=== PATIENT | male | born 1960 | race Caucasian/White ===

== ENCOUNTER 2017-07-13 05:54 | Inpatient (IN) | payer BC ==
[2017-06-17 14:19] VITALS: BMI 46.0
--- NOTE | 2017-06-17 15:04 | PAT Medication Instructions ---
Service Date Jun 17, 2017. Current Home Medication List Naproxen (Aleve), 2 TABS PO DAILY PRN for Pain Medication Instructions For Your Scheduled Surgery - Hold the following medications as instructed by your surgeon: Naproxen (Aleve), 2 TABS PO DAILY PRN for Pain -Take the morning of your surgery with a small sip of water: Tylenol (if needed up to 4 hours prior to surgery) If you have any questions please call us at [phone] or [phone] or [phone]
[2017-06-17 16:00] LABS: BASO % 0.4 %; BASO ABS # 0.02 K/uL (0-0.2); COMPLETE YES; EOS % 1.6 %; HEMATOCRIT 42.4 % (42-52); IG% 0.4 %; LYMPH % 29.1 %; LYMPH ABS # 1.59 K/uL (1.2-3.4); MEAN CORPUSCULAR HEMOGLOBIN 33.9 pg (25-34); MEAN CORPUSCULAR HGB CONC 36.1 g/dl (32-36); MEAN PLATELET VOLUME 11.3 fL (7.4-10.4); MONO % 9.3 %; NEUT % 59.2 %; PLATELET COUNT 145 K/uL (130-400); RED BLOOD COUNT 4.51 M/uL (4.7-6.1); WHITE BLOOD COUNT 5.47 K/uL (4.8-10.8)
[2017-06-17 16:02] LABS: URINE APPEARANCE CLEAR (CLEAR); URINE BILIRUBIN NEG (NEG); URINE COLOR YELLOW; URINE EPITHELIAL CELL AUTO 0-5 /lpf (0-5); URINE NITRITE NEG (NEG); URINE SPECIFIC GRAVITY 1.027 (1.000-1.030); UROBILINOGEN NEG (NEG); ZZUR CULT IF INDIC CLEAN CATCH NO
[2017-06-17 16:03] LABS: MANUAL MICROSCOPIC REQUIRED? NO; REVIEW REQ? NO
--- NOTE | 2017-06-17 16:05 | DIAGNOSTIC IMAGING REPORT ---
CHEST 2 VIEWS ROUTINE CLINICAL HISTORY: 56 years-old Male presenting with preadmission chest x-ray. TECHNIQUE: PA and lateral views of the chest were obtained. COMPARISON: None. FINDINGS: Cardiomediastinal silhouette normal. Lungs and pleural spaces clear. Degenerative changes of the spine. Upper abdomen normal. IMPRESSION: 1. No acute cardiopulmonary disease. Electronically signed by: Goyo Lynch M.D. 06/17/2017 4:04 PM Dictated Date/Time: 06/17/2017 4:03 PM
--- NOTE | 2017-06-17 16:06 | History and Physical ---
History & Physical Date Jun 17, 2017. Chief Complaint Bilateral Knee Pain History of Present Illness Mr Mahan is a 56 year old male who is here for a pre-op prior to bilateral total knee replacements. He presents with pain on the right and left side equally. Patient is here today for pre-op visit, scheduled for bilateral knee TKA at [facility] on 07/13/2017. The symptoms occur constantly with intermittent worsening. The problem is unchanged. Currently the patient states that the symptoms are moderate-severe. The pain is described as aching, discomforting and throbbing. The symptoms occur continuously. He rates his current pain as 9/ 10. The symptoms are aggravated by ascending stairs, daily activities, descending stairs, first steps while awake, kneeling, movement, repetitive activities, sleeping in any position, squatting and walking. Angelo states that the symptoms are relieved by no specific activity. In addition to knee pain equally on both sides the patient is also experiencing decreased mobility, difficulty bending, difficulty going to sleep, limping, nighttime awakening, pain, stiffness, tenderness and weakness. Pertinent negatives include chills and fever. The patient has had a previous x-ray and MRI. Prior NSAIDs include Advil. He has been treated with a corticosteroid injection on the right and left side equally. Patient has been treated with bilateral visco supplementation. Patient reports no relief with previous injections. Patient has tried previous knee bracing to bilateral knees. Patient has had previous therapy. He attended physical therapy. Patient has had arthroscopic surgery. Patient has had bilateral knee arthroscopies performed by Dr. Morales about 20 years ago. Past Medical/Surgical History GERD Obesity history of shoulder sx 2011 nasal surgery 2010 bilateral knee scopes 1996 umbilical hernia 1995 Additional History Hepatic Disease: No Endocrine Disorder: No Kidney Disease: No Hypertension: No Heart Disease: No Allergies Coded Allergies: No Known Allergies (Unverified , 06/17/17) Home Medications Scheduled PRN Naproxen (Aleve), 2 TABS PO DAILY PRN for Pain Physical Examination Skin: warm/dry, no rash Eyes: normal inspection, EOMI, sclerae normal Head: normocephalic, atraumatic Respiratory/Chest: lungs clear, normal breath sounds, no respiratory distress Cardiovascular: regular rate, rhythm, no edema, no murmur Abdomen / GI: normal bowel sounds, non tender Addiitonal Comments: Bilateral Knee Exam Hip ROM L * Active ROM - Flexion: 135 degrees, Abduction: 45 degrees, Adduction : 20 degrees, Internal: 35 degrees, External: 45 degrees, Extension: 0 degrees. Hip ROM R * Active ROM - Flexion: 135 degrees, Abduction: 45 degrees, Adduction : 20 degrees, Internal: 35 degrees, External: 45 degrees, Extension: 0 degrees. Knee ROM L * Active ROM - Flexion: 100 degrees, Extension: 5 degrees, Factors: pain, Description: Active painful ROM. Knee ROM R * Active ROM - Flexion: 100 degrees, Extension: 5 degrees, Factors: pain, Description: Active painful ROM. Strength LE Normal Strength Description - Normal lower extremity: Bilateral. Lumbar * Gait: Gait is antalgic on the left but not broad-based. The patient is able to [id number]-walk normally.. Muscle tone lower extremity: Lower extremity muscle tone is normal.. Muscle tone paraspinal: Paraspinous muscle tone is normal.. Spasm: Absent. Tenderness: There is no mid-line spinous or paraspinous tenderness. The sciatic notch is tender on the right but non- tender on the left.. Motion/stability: Motion is without pain, crepitus, or evident instability.. Buttock - Right: Painless. Left: Painless. Greater trochanter - Right: Painless. Left: Painless. Sacroiliac joint: Right: Painless. Left: Painless. Femoral stretch - Right: no back or leg pain, Left: no back or leg pain. Straight leg raise - Right: no back or leg pain, Left: Seated SLR on the right reproduces leg pain below the knee less than 90.. Lumbar Normal Skin/scars: Normal. Arnie's (Hernan) - Right: Negative. Left: Negative. Lumbar Spine ROM * Active ROM - Lat flex L: 35 degrees. Lat flex R: 35 degrees. Rotation L: 90 degrees. Rotation R: 90 degrees. Extension: 35 degrees. Flexion: 80 degrees. Factors: none, Description: pain free active ROM. Knee * Inspection - Gait: Limp. Alignment - Right: varus, Left: varus. Ecchymosis - Right: negative, Left: negative. Effusion - Right: mild, Left: mild. Swelling - Right: mild, Left: mild. Maximum tenderness - Right: Medial Joint Line, Left: Medial Joint Line. Patella exam - Crepitation - Right: mild, Left: mild. Patella position - Right: neutral, Left: neutral. Knee Normal Inspection - Atrophy - Right: Absent, Left: Absent. Skin - Right: Normal, Left: Normal. Patella exam - Apprehension - Right: Negative, Left: Negative. Q-angle - Right: Normal, Left: Normal. Posterior drawer - Right: Negative, Left: Negative. Anterior drawer - Right: Negative, Left: Negative. Valgus stress - Right: Negative, Left: Negative. Varus stress - Right: Negative , Left: Negative. Extensor lag - Right: Normal, Left: Normal. Neurovascular LE Normal Neurovascular examination including reflexes, sensation , and pulses is within normal limits. Bilateral Knee X-rays: Xrays reviewed of Bilateral knees showing findings consistent with degenerative joint disease including joint space narrowing, subchondral sclerosis and peripheral osteophyte formation. no acute bony pathology, overall varus alignment. Impression: degenerative joint disease of Bilateral knees with no acute bony pathology noted. Diagnosis Bilateral Knee Osteoarthritis Further care discussed with patient and at this point in time has failed conservative measures and would like to proceed with bilateral total knee replacement. Plan on discharge will be home with home health physical therapy. DVT prophalaxis with KEVIN Webers and will also place on aspirin 81 mg p.o. b.i.d. for a month postop. Patient will have follow up appointment in our office two weeks post op for staple/suture removal and re-evaluation. Patient otherwise has no other questions or concerns.
[2017-06-17 16:08] LABS: BUN/CREATININE RATIO 18.8 (10-20); CALCIUM 8.9 mg/dl (8.5-10.1); CREATININE 0.96 mg/dl (0.60-1.40); POTASSIUM 4.3 mmol/L (3.5-5.1)
[2017-06-18 08:08] LABS: ESTIMATED AVERAGE GLUCOSE 111 mg/dl; HA1C FLAG Normal (Normal)
[2017-07-13] VITALS (9 sets, daily range): BP systolic 138–188; BP diastolic 72–93; PULSE 58–85; TEMP 36.5–36.9; O2SAT 95–98; Ht 167.6 cm; Wt 129.5 kg
[~2017-07-13] VITALS: Ht 167.6 cm; Wt 129.5 kg
[~2017-07-13 05:54] MED LIST: NAPR1TAB9 PO
[2017-07-13] MEDS ORDERED: CeleBREX 200 MG CAP PO SCH (06:00)
[2017-07-13] MEDS ORDERED: ROPIVACAINE 5MG/ML 30 ML 150 MG, BUPIVACAINE/EPINEPHR 0.5% MPF 30 ML, KETOROLAC TROMETH... INFIL SCH ×7 (06:00)
[2017-07-13] MEDS ORDERED: DEXAMETHASONE 4 MG TAB PO SCH (06:00)
[2017-07-13] MEDS ORDERED: LACTATED RINGER'S 1000ML 500 ML IV ONE (06:00)
[2017-07-13] MEDS ORDERED: LACTATED RINGER'S 1000ML IV SCH (06:00)
[2017-07-13] MEDS ORDERED: FAMOTIDINE 20 MG TAB PO SCH (06:00)
[2017-07-13] MEDS ORDERED: CEFAZOLIN 3000 MG/65 ML D5W 65 ML IV SCH (06:00)
[2017-07-13] MEDS ORDERED: METOCLOPRAMIDE HCL 10 MG TAB PO SCH (06:00)
[2017-07-13] MEDS ORDERED: GABAPENTIN 300 MG CAP PO SCH (06:00)
[2017-07-13] MEDS ORDERED: LACTATED RINGER'S 1000ML 1,000 ML IV SCH (06:00)
[2017-07-13] MEDS ORDERED: ACETAMINOPHEN 500 MG TAB PO SCH (06:00)
[2017-07-13] MEDS ORDERED: BUPIVACAINE 0.5 % 5 MG/1 ML PF 10ML VIAL ONE (06:29)
[2017-07-13] MEDS: TRANEXAMIC ACID INJ 1,000 MG in SODIUM CHLORIDE 0.9% 100ML 100 ML IV SCH ×2 (06:30→07:32)
[2017-07-13] MEDS ORDERED: BUPIVACAINE 0.25% 30 ML VIAL ONE (06:30)
[2017-07-13] MEDS ORDERED: BACITRACIN 50000 UNIT VIAL ONE ×2 (06:59→07:00)
[2017-07-13] MEDS ORDERED: ORTHO JOINT ANESTHETIC ONE (06:59)
[2017-07-13] MEDS ORDERED: POVIDONE-IODINE OP SOLN 30 ML BTL ONE ×2 (06:59→07:00)
--- NOTE | 2017-07-13 07:02 | History & Physical Bridge Note ---
H&P Re-Evaluation Bridge Note: I have examined the patient, reviewed the History & Physical and in the interval since the performance of the History & Physical I have noted the following changes of clinical significance: No changes noted
[2017-07-13] MEDS ORDERED: MIDAZOLAM HCL 1 MG/ML 2ML VIAL ONE (07:09)
[2017-07-13] MEDS ORDERED: PROPOFOL IV EMULSION 10 MG/ML 20 ML VIAL IV ONE ×2 (09:00→10:15)
[2017-07-13] MEDS ORDERED: EpHEDrine SULFATE 50MG/5ML SYR ONE (09:00)
[2017-07-13] MEDS ORDERED: LABETALOL HCL IV 5 MG/ML 20ML IV PRN (09:45)
[2017-07-13] MEDS ORDERED: FENTANYL CITRATE INJ 50 MCG/1 ML 2 ML VIAL IV PRN (09:45)
[2017-07-13] MEDS ORDERED: MEPERIDINE HCL 25 MG/ML CARP IV PRN (09:45)
[2017-07-13] MEDS ORDERED: EpHEDrine SULFATE INJ 50 MG/ML AMP IV PRN (09:45)
[2017-07-13] MEDS ORDERED: ATROPINE SULFATE 0.1 MG/ML 5ML SYR IV PRN (09:45)
[2017-07-13] MEDS ORDERED: ONDANSETRON INJ 2 MG/ML 2 ML VIAL IV PRN ×2 (09:45→11:30)
[2017-07-13] MEDS ORDERED: HYDROmorphone INJ 1 MG/ML SYR IV PRN (09:45)
--- NOTE | 2017-07-13 10:30 | [facility] Operative Report ---
Operative Report Operative Date Jul 13, 2017. Pre-Operative Diagnosis Bilateral knee osteoarthritis Post-Operative Diagnosis Bilateral knee osteoarthritis Procedure(s) Performed Bilateral Total Knee Arthroplasty utilizing [employer] journey 2 patient matched total knee arthroplasty right size 5 femur 5 tibia 12 Patty 35 oval patella left size 5 femur 4 tibia 11 poly-[address] Butch Morales Research Biologist Surgeon(s) Shaun Vigil Estimated Blood Loss mL Findings Severe end-stage tricompartmental degenerative joint disease Nourse wants to conservative management including physical therapy anti-inflammatories relative rest activity modification injections patient presents for total knee arthroplasty Specimens Permanent specimens A: Right knee bone and tissue B: Left knee bone and tissue Complication(s) None Disposition Recovery Room / PACU Indications Severe end-stage Tri-Chlor metal degenerative joint disease with varus alignment large muscle conservative management patient presents for total knee arthroplasty bilaterally Description of Procedure After proper prepping and draping of the bilateral lower extremities, an anterior midline incision was made over the region of the extensor extensor mechanism of the left knee. After meticulous hemostasis was obtained and maintained in subcutaneous tissues a medial parapatellar incision was made The patella was subluxed lateralward the medial lateral gutter were cleaned from any hypertrophic synovitis and scar tissue of the distal femoral block was placed and the distal femoral osteotomy cut was made subsequently the chamfers anterior and posterior osteotomy cuts were made utilizing the 4-in-1 block the tibia was subsequently subluxed anteriorward medial and ateral meniscal remnants were excised in their entirety remnants of the anterior and posterior cruciate ligaments were excised in their entirety excellent exposure of the proximal tibia was obtained the tibial osteotomy guide was placed on the proximal tibial osteotomy cut was made once again the knee was irrigated with copious amounts of sterile saline solution the patella was subsequently everted lateralward thickened scar tissue around the patella was removed the patella was subsequently cut utilizing a freehand technique and was drilled prepared for final preparation and placement of patella socially flexion-extension gaps were checked and the equal and symmetric trials were placed to the appropriate femoral and tibial trials with poly-spacer being placed for equal flexion and extension gaps and full range of motion including extension to 0 and flexion to 140 the trial components after having been taken to recovery range of motion was subsequently removed meticulous hemostasis was obtained and maintained subsequently a knee block injection of joint cocktail including ropivacaine 0.5 % 150 mg. Bupivacaine 0.5% epinephrine 1-200,030 mL's toradol 30 mg dexamethasone 4 mg ketamine 10 mg clonidine 100 micrograms normal saline solution 30 mg was infiltrated into the soft tissues of the posterior knee medial lateral gutters and periosteal synovium special attention was paid to protect neurovascular structures at all times subsequently trial components having been removed the knee was irrigated with sterile saline solution. debris was removed the proximal tibia was subsequently prepared and was made ready for the placement of the tibial component tibial component was also cemented and tamped into position the femoral component was subsequently placed and cemented in the position the patellar component was subsequently cemented in position because hemostasis once again obtained and maintained wound having been thoroughly irrigated with debridement and debridement lavage was performed as well as a medial parapatellar incision closed with #1 Vicryl in interrupted fashion subcutaneous was closed with #2 Vicryl skin was closed with skin clips Next, an anterior midline incision was made over the region of the extensor extensor mechanism of the right knee. After meticulous hemostasis was obtained and maintained in subcutaneous tissues a medial parapatellar incision was made The patella was subluxed lateralward the medial lateral gutter were cleaned from any hypertrophic synovitis and scar tissue of the distal femoral block was placed and the distal femoral osteotomy cut was made subsequently the chamfers anterior and posterior osteotomy cuts were made utilizing the 4-in-1 block the tibia was subsequently subluxed anteriorward medial and ateral meniscal remnants were excised in their entirety remnants of the anterior and posterior cruciate ligaments were excised in their entirety excellent exposure of the proximal tibia was obtained the tibial osteotomy guide was placed on the proximal tibial osteotomy cut was made once again the knee was irrigated with copious amounts of sterile saline solution the patella was subsequently everted lateralward thickened scar tissue around the patella was removed the patella was subsequently cut utilizing a freehand technique and was drilled prepared for final preparation and placement of patella socially flexion-extension gaps were checked and the equal and symmetric trials were placed to the appropriate femoral and tibial trials with poly-spacer being placed for equal flexion and extension gaps and full range of motion including extension to 0 and flexion to 140 the trial components after having been taken to recovery range of motion was subsequently removed meticulous hemostasis was obtained and maintained subsequently a knee block injection of joint cocktail including ropivacaine 0.5 % 150 mg. Bupivacaine 0.5% epinephrine 1-200,030 mL's toradol 30 mg dexamethasone 4 mg ketamine 10 mg clonidine 100 micrograms normal saline solution 30 mg was infiltrated into the soft tissues of the posterior knee medial lateral gutters and periosteal synovium special attention was paid to protect neurovascular structures at all times subsequently trial components having been removed the knee was irrigated with sterile saline solution. debris was removed the proximal tibia was subsequently prepared and was made ready for the placement of the tibial component tibial component was also cemented and tamped into position the femoral component was subsequently placed and cemented in the position the patellar component was subsequently cemented in position because hemostasis once again obtained and maintained wound having been thoroughly irrigated with debridement and debridement lavage was performed as well as a medial parapatellar incision closed with #1 Vicryl in interrupted fashion subcutaneous was closed with #2 Vicryl skin was closed with skin clips.. PA-C was necessary for prepping and drapping as well as wound closure of deep fascia Sub cutaneous tissue and skin and was necessary for the case. A sterile compressive dressings were placed, patient was taken to recovery in stable condition of report dictated by Andrew I attest to the content of the Intraoperative Record and any orders documented therein. Any exceptions are noted below. I attest to the content of the Intraoperative Record and any orders documented therein. Any exceptions are noted below.
[2017-07-13] MEDS ORDERED: MoRPHine SULFATE 2 MG/ML CARP IV PRN (11:30)
[2017-07-13] MEDS ORDERED: ALUMINUM/MAGNESIUM/SIMETH (MAALOX MAX) 30 ML UDC PO PRN (11:30)
[2017-07-13] MEDS ORDERED: BISACODYL 10 MG SUPP PR PRN (11:30)
[2017-07-13] MEDS ORDERED: MAGNESIUM HYDROXIDE SUSP 30 ML UDC PO PRN (11:30)
[2017-07-13] MEDS ORDERED: TAMSULOSIN HCL 0.4 MG CAP PO PRN (11:30)
--- NOTE | 2017-07-13 12:14 | Anesthesiology Progress Note ---
Anesthesia Post Op Note Date & Time Jul 13, 2017 at 12:14 Vital Signs Pain Intensity: 0 Vital Signs Past 12 Hours Date Time Temp Pulse Resp B/P (MAP) Pulse Ox O2 Delivery O2 Flow Rate FiO2 07/13/17 12:00 65 20 134/81 98 Nasal Cannula 2 07/13/17 11:45 36.6 71 20 139/75 98 Nasal Cannula 2 07/13/17 11:35 72 20 137/88 98 Oxymask 5 07/13/17 11:25 68 16 124/80 98 Oxymask 10 07/13/17 11:15 36.4 74 16 144/90 98 Oxymask 10 07/13/17 06:53 36.8 58 20 188/93 97 Room Air Notes Mental Status: alert / awake / arousable, participated in evaluation Pt Amnestic to Procedure: Yes Nausea / Vomiting: adequately controlled Pain: adequately controlled Airway Patency, RR, SpO2: stable & adequate BP & HR: stable & adequate Hydration State: stable & adequate Neuraxial Anesthesia: was administered, sensory block is resolving Anesthetic Complications: no major complications apparent
[2017-07-13] MEDS ORDERED: MoRPHine SULFATE 10 MG/ML CARP/VIAL IV PRN (14:00)
[2017-07-13] MEDS: D5W AND 1/2NSS + 20MEQ KCL 1,000 ML IV SCH ×2 (14:08→23:17)
[2017-07-13] MEDS: OXYCODONE HCL IR 5 MG TAB (IMMEDIATE RELEASE) PO PRN ×4 (14:13→23:19)
[2017-07-13] MEDS: KETOROLAC TROMETHAMINE 30 MG/ML VIAL IV. SCH ×3 (14:14→23:16)
--- NOTE | 2017-07-13 14:53 | DIAGNOSTIC IMAGING REPORT ---
LEFT KNEE 1 OR 2 VIEWS ROUTINE CLINICAL HISTORY: AP/LATERAL IN PACU LEFT KNEE COMPARISON: None. DISCUSSION: Total left knee prosthetic in good position. Good contact between prosthesis and underlying bone. Surgical drains are in position. Expected soft tissue postoperative change IMPRESSION: Anatomic alignment status post total left knee replacement The above report was generated using voice recognition software. It may contain grammatical, syntax or spelling errors. Electronically signed by: Adams Richards M.D. 07/13/2017 2:52 PM Dictated Date/Time: 07/13/2017 2:51 PM
--- NOTE | 2017-07-13 14:58 | DIAGNOSTIC IMAGING REPORT ---
RIGHT KNEE 1 OR 2 VIEWS ROUTINE CLINICAL HISTORY: 56 years-old Male presenting with AP/LATERAL IN PACU RIGHT KNEE Right. TECHNIQUE: Frontal and crosstable lateral views of the right knee were obtained. COMPARISON: None. FINDINGS: Total right knee arthroplasty with patellar resurfacing. Subcutaneous and intra-articular gas noted. Surgical drain and skin indira in place. No acute fracture or hardware complication. No malalignment. IMPRESSION: Expected postsurgical appearance of the total right knee arthroplasty with patellar resurfacing. Electronically signed by: Goyo Lynch M.D. 07/13/2017 2:56 PM Dictated Date/Time: 07/13/2017 2:56 PM
[2017-07-13] MEDS: CEFAZOLIN IV 2,000 MG in DEXTROSE 5% 50ML 50 ML IV SCH ×2 (16:20→23:17)
[2017-07-13] MEDS: FERROUS GLUCONATE 324 MG TAB PO SCH (17:58)
[2017-07-13] MEDS: ASPIRIN 81 MG ECTAB PO SCH (21:31)
[2017-07-13] MEDS: DOCUSATE SODIUM 100 MG CAP PO SCH (21:31)
[2017-07-13] MEDS: SENNA 8.6 MG TAB PO SCH (21:32)
[2017-07-13] MEDS: OXYCODONE HCL 10 MG TABCR (OXYCONTIN) PO SCH (21:35)
[2017-07-13] MEDS: ACETAMINOPHEN 500 MG TAB PO SCH (22:24)
[2017-07-14 04:00] VITALS: BP 146/76; PULSE 67; TEMP 36.6; O2SAT 97
[2017-07-14] MEDS: ACETAMINOPHEN 500 MG TAB PO SCH ×3 (06:17→21:36)
[2017-07-14] MEDS: KETOROLAC TROMETHAMINE 30 MG/ML VIAL IV. SCH ×2 (06:17→11:50)
[2017-07-14 06:37] LABS: HEMATOCRIT 36.2 % (42-52); MEAN CELL VOLUME 94.8 fL (80-100); MEAN CORPUSCULAR HEMOGLOBIN 32.7 pg (25-34); MEAN CORPUSCULAR HGB CONC 34.5 g/dl (32-36); MEAN PLATELET VOLUME 11.4 fL (7.4-10.4); PLATELET COUNT 172 K/uL (130-400); RED BLOOD COUNT 3.82 M/uL (4.7-6.1); WHITE BLOOD COUNT 14.14 K/uL (4.8-10.8)
[2017-07-14 07:15] VITALS: BP 150/72; PULSE 63; TEMP 36.7; O2SAT 97
[2017-07-14 07:22] LABS: BUN/CREATININE RATIO 18.6 (10-20); CALCIUM 7.8 mg/dl (8.5-10.1); CREATININE 0.83 mg/dl (0.60-1.40); POTASSIUM 4.6 mmol/L (3.5-5.1)
[2017-07-14] MEDS: OXYCODONE HCL 10 MG TABCR (OXYCONTIN) PO SCH ×2 (08:49→20:31)
[2017-07-14] MEDS: PANTOprazole SOD 40 MG TAB PO SCH (08:50)
[2017-07-14] MEDS: OXYCODONE HCL IR 5 MG TAB (IMMEDIATE RELEASE) PO PRN ×3 (08:50→23:26)
[2017-07-14] MEDS: FERROUS GLUCONATE 324 MG TAB PO SCH ×3 (08:51→17:17)
[2017-07-14] MEDS: MULTIVITAMIN TAB PO SCH (08:51)
[2017-07-14] MEDS: ENOXAPARIN 40 MG/0.4 ML SYR SQ SCH (08:52)
[2017-07-14] MEDS: DOCUSATE SODIUM 100 MG CAP PO SCH ×2 (08:52→20:31)
[2017-07-14] MEDS: ASPIRIN 81 MG ECTAB PO SCH ×2 (08:52→20:31)
[2017-07-14] MEDS: D5W AND 1/2NSS + 20MEQ KCL 1,000 ML IV SCH (08:53)
--- NOTE | 2017-07-14 09:25 | Anesthesiology Progress Note ---
Anesthesia Post Op Note Date & Time Jul 14, 2017 at 09:24 Vital Signs Pain Intensity: 7.0 Vital Signs Past 12 Hours Date Time Temp Pulse Resp B/P (MAP) Pulse Ox O2 Delivery O2 Flow Rate FiO2 07/14/17 07:15 36.7 63 18 150/72 (98) 97 Room Air 07/14/17 04:00 36.6 67 18 146/76 (99) 97 Room Air 07/13/17 23:24 Room Air CPAP 07/13/17 22:50 36.9 79 18 138/74 (95) 95 Room Air Notes Mental Status: alert / awake / arousable, participated in evaluation Pt Amnestic to Procedure: Yes Nausea / Vomiting: adequately controlled Pain: adequately controlled Airway Patency, RR, SpO2: stable & adequate BP & HR: stable & adequate Hydration State: stable & adequate Neuraxial Anesthesia: sensory block resolved Anesthetic Complications: no major complications apparent
[2017-07-14] MEDS: MoRPHine SULFATE 4 MG/ML 1 ML CARP\\VIAL IV PRN ×2 (10:41→20:29)
[2017-07-14] MEDS ORDERED: ZOLPIDEM TARTRATE 5 MG TAB PO PRN (13:15)
[2017-07-14 15:06] VITALS: BP 161/77; PULSE 65; TEMP 36.6; O2SAT 98
[2017-07-14] MEDS: CeleBREX 200 MG CAP PO SCH (20:31)
[2017-07-14] MEDS: SENNA 8.6 MG TAB PO SCH (20:31)
[2017-07-14 22:56] VITALS: BP 139/73; PULSE 66; TEMP 36.8; O2SAT 97
[2017-07-15] MEDS: ACETAMINOPHEN 500 MG TAB PO SCH ×3 (05:37→21:17)
[2017-07-15] MEDS: OXYCODONE HCL IR 5 MG TAB (IMMEDIATE RELEASE) PO PRN ×5 (05:37→22:15)
[2017-07-15 06:56] VITALS: BP 163/88; PULSE 54; TEMP 36.8; O2SAT 96
--- NOTE | 2017-07-15 07:20 | Orthopedic Progress Note ---
Orthopedic Progress Note Date of Service Jul 15, 2017. Subjective Post OP Day: 2 Reports: feeling well, pain controlled w PO medications, Denies: complaints, chest pain, SOB, nausea / vomiting, light headedness, calf pain Additional Notes: state had emotional night, didn't get much sleep. was anxious about his surgery and recovery. Objective calves soft nontender, N/V intact, capillary refill less than 2 sec., dressing C /D/I (silverlon intact), A&O x3, toes mobile Date Time Temp Pulse Resp B/P (MAP) Pulse Ox O2 Delivery O2 Flow Rate FiO2 07/15/17 06:56 36.8 54 16 163/88 (113) 96 Room Air 07/14/17 22:56 36.8 66 16 139/73 (95) 97 CPAP 07/14/17 19:20 Room Air 07/14/17 15:06 36.6 65 18 161/77 (105) 98 Room Air Assessment & Plan Assessment: POD #2 s/p bilateral TKA -pt/ot -dvt proph with isamar/scd/lovenox -plan for d/c to [facility] when stable, auth pending Discharge Planning DVT Prophylaxis: TEDs, SCDs, Lovenox Therapy: Physical Therapy
[2017-07-15] MEDS: OXYCODONE HCL 10 MG TABCR (OXYCONTIN) PO SCH ×2 (08:29→21:16)
[2017-07-15] MEDS: FERROUS GLUCONATE 324 MG TAB PO SCH ×3 (08:29→18:12)
[2017-07-15] MEDS: DOCUSATE SODIUM 100 MG CAP PO SCH ×2 (08:30→21:16)
[2017-07-15] MEDS: ASPIRIN 81 MG ECTAB PO SCH ×2 (08:30→21:16)
[2017-07-15] MEDS: CeleBREX 200 MG CAP PO SCH ×2 (08:30→21:16)
[2017-07-15] MEDS: MULTIVITAMIN TAB PO SCH (08:30)
[2017-07-15] MEDS: PANTOprazole SOD 40 MG TAB PO SCH (08:31)
[2017-07-15] MEDS: ENOXAPARIN 40 MG/0.4 ML SYR SQ SCH (08:31)
--- NOTE | 2017-07-15 09:10 | Clinical Documentation Query ---
CLINICAL DOCUMENTATION QUERY A 56 year old male who underwent bilateral total knee arthroplasty. In your clinical opinion is this patient being managed for: ( x ) Acute blood loss anemia in the setting of bilat total knee arthroplasty ( ) Not Agree ( ) Other explanation of clinical findings (Please Explain) ( ) Unable to determine (Please Define) ( ) Need to Discuss The medical record reflects the following clinical findings, treatment, and risk factors. Clinical Indicators: Hgb 15.3 trending down to 12.5 (3 gm decrease), EBL/Hemovac 225 ml Treatment: serial CBCs, IV hydration, I&O, type and screen Risk Factors: s/p surgical intervention, morbid obesity Please clarify and document your clinical opinion in the progress notes and discharge summary. Terms such as "probable", "suspected", "likely", "questionable", "possible", or "still to be ruled out" are acceptable. IF IN AGREEMENT, YOU MUST DOCUMENT ABOVE DIAGNOSTIC STATEMENT IN DAILY PROGRESS NOTES AND DISCHARGE SUMMARY. This document is not part of the patient's record. Thank You, Shabana Alvarez RN [phone]
[2017-07-15] MEDS: MoRPHine SULFATE 4 MG/ML 1 ML CARP\\VIAL IV PRN (12:13)
[2017-07-15 15:08] VITALS: BP 155/73; PULSE 74; TEMP 36.7; O2SAT 97
[2017-07-15] MEDS ORDERED: ACET-24 PO (16:06)
[2017-07-15] MEDS ORDERED: ASPEC81 PO (16:06)
[2017-07-15] MEDS ORDERED: LVNIS40 SQ (16:06)
[2017-07-15] MEDS ORDERED: CLB200 PO (16:07)
[2017-07-15] MEDS ORDERED: CLC100 PO (16:07)
[2017-07-15] MEDS ORDERED: RXC5 PO (16:07)
[2017-07-15] MEDS ORDERED: DLCS PR (16:07)
[2017-07-15] MEDS ORDERED: MULT-890 PO (16:07)
[2017-07-15] MEDS ORDERED: SNK PO (16:07)
[2017-07-15] MEDS ORDERED: OXYSR10 PO (16:07)
[2017-07-15] MEDS ORDERED: PRT40 PO (16:07)
--- NOTE | 2017-07-15 16:13 | Discharge Instructions ---
Discharge Instructions Date of Service Jul 15, 2017. Admission Reason for Admission: Bilateral Knee Osteoarthritis Discharge Discharge Diagnosis / Problem: Bilateral Knee Osteoarthritis Discharge Goals Goal(s): Decrease discomfort, Improve function, Increase independence Activity Recommendations Activity Level: Assistance Required Therapies: Physical Therapy (Bilateral TKA Protocol), Occupational Therapy (ADL 's and transfers) Weightbearing Status: Left weightbearing (as tolerated), Right weightbearing ( as tolerated) . Additional Information Patient informed of condition: Yes Advance Directives: No DNR: No Level of Care: Acute Rehab Communicable Disease: Yes Prognosis: Stable [place] Catheter: No Instructions / Follow-Up Instructions / Follow-Up ACTIVITY RECOMMENDATIONS: SELF CARE INSTRUCTIONS AFTER TOTAL KNEE REPLACEMENT A. You may need to continue a physical therapy program after discharge from the hospital. There are several options available to you. Your doctor will assist you in selecting the best one for you. 1. An out-patient facility 2 to 3 times a week for therapy or home therapy. 2. Continue working on all exercises taught to you in the hospital. Your goals should be to increase bending of your knee to 90 degrees and beyond and to fully straighten your knee. B. You may progress at your own pace from walking with a walker or crutches to a cane; then to no assistive devices. C. Make walking a part of your daily routine. Be up as much as comfortable with rest periods throughout the day. Rest with leg elevation is very important. Use the ice wrap frequently for the first 3-4 weeks. D. There are no restrictions on activities. You may ride in a car, shop, participate in etcher enameling and all social activities. E. Wear the long elastic stockings (GINA hose) 20 hours a day for 2 weeks after surgery. They can be removed several times a day for laundering and for a bath. F. You may shower, no tub baths until cleared by your doctor. SPECIAL CARE INSTRUCTIONS: VERY IMPORTANT TO READ AND REVIEW A. There are a few signs you need to watch for after you are home. Call [facility] if you notice any of the followin. Increased severe knee pain. Some pain is expected especially when you exercise. 2. Increased swelling in your leg or knee; pain or swelling of the calf muscle in either lower leg. 3. Any fluid drainage from the incision. 4. Shortness of breath or chest pain. B. Please call [facility] at if you have any concerns or questions about your operation or recovery. The doctor or his nurse will return your call promptly. C. You must take antibiotics before dental work, bladder, bowel or other surgery. Your doctor will provide you with a permanent care to carry describing this precaution. IMPORTANT: * YOU WILL BE TAKING LOVENOX FOR A TOTAL OF 14 DAYS FROM THE DAY OF SURGERY. THIS IS A BLOOD THINNER. ONCE YOU ARE DONE TAKING YOUR LOVENOX, YOU WILL TAKE ASPIRIN, 81 MG, TWICE DAILY FOR 2 WEEKS UNLESS OTHERWISE DIRECTED. * HIGH RISK PATIENTS MAY BE PRESCRIBED A STRONGER BLOOD THINNER. THIS WILL BE PROVIDED AT DISCHARGE. * CALL IF INCREASED PAIN, REDNESS, DRAINAGE OR FEVER GREATER THAT 101. * WEAR GINA HOSE 20 HOURS PER DAY FOR 2 WEEKS. * Silverlon- This is a large adhesive bandage that contains silver ions. This helps your incision heal by fighting off bacteria and protecting it from the outside environment. You are permitted to shower with this dressing. This will remain on your incision for 7 days and then should be removed. Some visible blood or drainage through the dressing window is normal. If there is significant drainage or leaking noted before the 7 days notify your doctor's office immediately. Once removed, keep incision clean and dry. If there is any drainage or redness noted, please call your surgeon. . FOLLOW UP VISIT: If appointment is not already scheduled: Please call [facility] to make a follow-up appointment for 2 weeks after your surgery at . Current Hospital Diet Patient's current hospital diet: Regular Diet Discharge Diet Recommended Diet: Regular Diet Procedures Procedures Performed: Bilateral Total Knee Arthroplasty utilizing [employer] journey 2 patient matched total knee arthroplasty right size 5 femur 5 tibia 12 Patty 35 oval patella left size 5 femur 4 tibia 11 poly-35 oval patella Pending Studies Studies pending at discharge: no Physician Orders On Transfer Dressing Changes: Remove Silverlon dressings on 07/20/17 Vital Signs: routine Laboratory Results Hemoglobin A1c Test 06/17/17 15:13 Range/Units Estimated Average Glucose 111 mg/dl Hemoglobin A1c 5.5 4.5-5.6 % Medical Emergencies . Who to Call and When: Medical Emergencies: If at any time you feel your situation is an emergency, please call 911 immediately. . Non-Emergent Contact Non-Emergency issues call your: Surgeon Call Non-Emergent contact if: temperature is above 101.5, your pain is not controlled, your pain is worsening, wound has increased drainage, wound has increased redness . . "Provider Documentation" section prepared by Shaun Vigil. . Core Measure Problem Core Measures: None [place] Drug Monitoring Program Search Results: patient reviewed within database, no issues identified
[2017-07-15] MEDS: SENNA 8.6 MG TAB PO SCH (21:16)
[2017-07-15 22:54] VITALS: BP 141/75; PULSE 73; TEMP 36.9; O2SAT 94
[2017-07-16] MEDS: ACETAMINOPHEN 500 MG TAB PO SCH (05:38)
[2017-07-16] MEDS: OXYCODONE HCL IR 5 MG TAB (IMMEDIATE RELEASE) PO PRN ×2 (05:39→09:52)
[2017-07-16 07:03] VITALS: BP 144/78; PULSE 72; TEMP 37; O2SAT 96
--- NOTE | 2017-07-16 08:11 | Orthopedic Progress Note ---
Orthopedic Progress Note Date of Service Jul 16, 2017. Subjective Post OP Day: 3 Reports: feeling well Objective N/V intact, dressing C/D/I, toes mobile Date Time Temp Pulse Resp B/P (MAP) Pulse Ox O2 Delivery O2 Flow Rate FiO2 07/16/17 07:03 37.0 72 17 144/78 (100) 96 Room Air 07/15/17 23:35 CPAP 07/15/17 22:54 36.9 73 18 141/75 (97) 94 CPAP 07/15/17 15:15 Room Air 07/15/17 15:08 36.7 74 17 155/73 (100) 97 Room Air Assessment & Plan Assessment: POD #3 s/p bilateral TKA -pt/ot -dvt proph with isamar/scd/lovenox -plan for d/c to [facility] Discharge Planning DVT Prophylaxis: TEDs, SCDs, Lovenox Therapy: Physical Therapy
[2017-07-16] MEDS: FERROUS GLUCONATE 324 MG TAB PO SCH (08:33)
[2017-07-16] MEDS: DOCUSATE SODIUM 100 MG CAP PO SCH (08:34)
[2017-07-16] MEDS: PANTOprazole SOD 40 MG TAB PO SCH (08:34)
[2017-07-16] MEDS: ASPIRIN 81 MG ECTAB PO SCH (08:34)
[2017-07-16] MEDS: MULTIVITAMIN TAB PO SCH (08:34)
[2017-07-16] MEDS: CeleBREX 200 MG CAP PO SCH (08:34)
[2017-07-16] MEDS: ENOXAPARIN 40 MG/0.4 ML SYR SQ SCH (08:35)
[2017-07-16] MEDS: OXYCODONE HCL 10 MG TABCR (OXYCONTIN) PO SCH (08:37)
[2017-07-16 09:37] VITALS: BP 144/78; PULSE 72; TEMP 37; O2SAT 96
--- NOTE | 2017-07-21 15:30 | DISCHARGE SUMMARY ---
DISCHARGE DIAGNOSIS: Degenerative joint disease, bilateral knees. SECONDARY DIAGNOSES: Gastroesophageal reflux disease, obesity. CONSULTS: None. COMPLICATIONS: None. PROCEDURES: Bilateral total knee arthroplasty performed by Dr. Morales on 07/13/2017. BRIEF HISTORY: As dictated in the history and physical. HOSPITAL SUMMARY: The patient was admitted on the above-noted date and had the above-noted surgery performed which he tolerated well. The patient was started on a physical therapy and occupational therapy protocol during his postoperative period of which he continued to progress. Vital signs remained stable and blood pressures fluctuated off and on, however, remain stable. Hemoglobin had only dropped to 12.5 and he was continued to progress daily with his physical therapy. By July 16, he was feeling well, neurovascularly intact, dressings were clean, dry and intact. Toes were mobile. Vital signs were stable. He was afebrile. Plans were for him to [facility] of which had been approved. He was otherwise remaining stable and it was felt he could be discharged to at bedtime [place] on 07/16/2017. For further review, please see chart. LABORATORY AND X-RAY DATA: As per chart. DISCHARGE INSTRUCTIONS: The patient was discharged to [facility] on 07/16/2017. DIET: Regular. ACTIVITY: Weightbearing as tolerated on left and right lower extremities. Follow TK instruction sheets and special care instructions as noted. The patient to have PT and OT protocols for bilateral total knee arthroplasty. Follow up with Dr. Morales in 2 weeks. The patient to call for appointment if one has not been made for you. DISCHARGE MEDICATIONS: Acetaminophen 1000 mg p.o. q. 8 hours for 30 days, aspirin 81 mg p.o. b.i.d. for 14 days once the Lovenox has been discontinued, bisacodyl suppository 10 mg DE daily p.r.n., Celebrex 200 mg p.o. b.i.d., Colace 100 mg p.o. b.i.d. for 10 days, enoxaparin 40 mg subQ q.a.m. 12 days, multivitamin 1 tab p.o. q.a.m., receiving OxyContin 10 mg p.o. q. 12 hours, oxycodone 5-10 mg p.o. q. 4 hours p.r.n., pantoprazole 40 mg p.o. q.a.m. and senna 17.2 mg p.o. at bedtime. Stop taking naproxen.
== END 2017-07-16 10:47 | DRG 462 ==
LOC: C.ACU 05:54 → C.3E 06:45 → ENRESERV 11:34
PROVIDERS: ADMIT Orthopaedic Surgery; ATTEND Orthopaedic Surgery
PROC: 0SRT0J9 Replacement of Right Knee Joint, Femoral Surface with Synthetic Substitute, Cemented, Open Approach (ICD-10-PCS; principal; 2017-07-13 08:00)
PROC: 0SRU0J9 Replacement of Left Knee Joint, Femoral Surface with Synthetic Substitute, Cemented, Open Approach (ICD-10-PCS; principal; 2017-07-13 08:00)
DX: M17.0 Bilateral primary osteoarthritis of knee (principal); Z68.42 Body mass index [BMI] 45.0-49.9, adult; K21.9 Gastro-esophageal reflux disease without esophagitis; E66.9 Obesity, unspecified